=== PATIENT | female | born 1990 | race Caucasian/White ===

== ENCOUNTER 2023-11-13 18:56 | Emergency (ER) | payer BC, SELFPAY ==
[2023-11-13 19:11] VITALS: BP 126/69; PULSE 75; RESP 16; TEMP 36.6; O2SAT 100; BMI 24.6
--- NOTE | 2023-11-13 19:55 | ED.EYEPROB ---
HPI - Eye Problem General Chief complaint: Eye Problems Stated complaint: got bleach in lt eye Time Seen by Provider: 11/13/23 19:06 Source: patient Mode of arrival: Ambulatory History of Present Illness HPI Narrative: 33-year-old female presents for evaluation of irritation in her left eye. Patient was bleaching her hair when a small amount of hair bleach got into her left eye. She immediately washed her eyes out for 15 minutes in the shower and decided to present for evaluation. Patient states that she was wearing contact lenses when the incident occurred but immediately removed her lenses prior to washing her eyes out. Patient wears corrective lenses at baseline and states that her vision seems normal to her. She states that her left eye feels ?dry? but otherwise is not irritated or bothersome to her. Related Data Allergies Allergy/AdvReac Type Severity Reaction Status Date / Time No Known Drug Allergies Allergy Verified 11/13/23 19:13 Review of Systems Review of Systems Narrative: See HPI Patient History Social History Smoking Status: Never smoker Smoking Status: Never smoker Substance Use Type: marijuana Exam Initial Vital Signs Initial Vital Signs: Vital Signs Temperature 98 F 11/13/23 19:11 Pulse Rate 75 11/13/23 19:11 Respiratory Rate 16 11/13/23 19:11 Blood Pressure 126/69 11/13/23 19:11 Pulse Oximetry 100 11/13/23 19:11 Oxygen Delivery Method Room Air 11/13/23 19:11 Const: Awake, alert, no acute distress, nontoxic appearing Eye: PERRLA, visual acuity at baseline per patient, EOMI, pH 7, questionable faint fluorescein uptake scattered over left cornea Skin: Warm, Dry, intact, no rashes Neuro: AO x3, CN II-XII grossly intact, moves all extremities Course Orders Ordered: Discontinued Medications Erythromycin (Erythromycin Ophth 1 Gm Oint) 1 applic EYE-LEFT NOW ONE Stop: 11/13/23 20:04 Last Admin: 11/13/23 20:09 Dose: 1 applic Documented By: MARCIE Fluorescein Sodium (Fluorescein 1 Mg Strip) 1 mg EYE-LEFT NOW ONE Stop: 11/13/23 19:59 Last Admin: 11/13/23 20:04 Dose: 1 mg Documented By: MARCIE Vital Signs Vital signs: Vital Signs - 8 hr 11/13/23 19:11 Temperature 98 F Pulse Rate 75 Respiratory Rate 16 Blood Pressure 126/69 Pulse Oximetry 100 Oxygen Delivery Method Room Air MDM - Eye Problem Lab Data Labs: Point of Care Testing pH,Tear Film,POC Measurement pH 7 MDM Narrative Medical decision making narrative: Well-appearing patient with accidental 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 Visual acuity at baseline per patient. PH of 7, patient previously irrigated her eyes prior to coming to the emergency department. On staining there was no obvious large uptake of fluorescein, possible trace uptake over the central cornea. Out of precaution a tube of erythromycin ointment sent with the patient for treatment. Patient counseled on appropriate use and ED return precautions. Discharge Plan Departure Patient Disposition: Home Clinical Impression: Accidental exposure to bleach Instructions: DI for Chemical Eye Burn Activity Restrictions/Additional Instructions: Use the erythromcyin ointment 3-4 times per day. If you notice significant worsening of symptoms or vision changes please return for repeat evaluation. Stand Alone Forms: Patient Portal/API
[2023-11-13] MEDS: FLUORESCEIN 1 MG STRIP EYE-LEFT (20:04)
[2023-11-13] MEDS: ERYTHROMYCIN OPHTH 1 GM OINT 1 APPLIC EYE-LEFT (20:09)
== END 2023-11-13 20:17 | disposition home or self-care (01) ==
PROVIDERS: Emergency Provider Emergency Medicine
DX: Z77.098 Contact with and (suspected) exposure to other hazardous, chiefly nonmedicinal, chemicals (principal)
CPT/HCPCS: 99282; 99283